=== PATIENT | male | born 1975 | race Caucasian/White ===

== ENCOUNTER 2016-11-16 16:46 | Emergency (ER) | payer BC, OTHER ==
[~2016-11-16] VITALS: Ht 170.2 cm; Wt 80.0 kg
[2016-11-16 16:48] VITALS: BP 141/87; PULSE 73; RESP 16; TEMP 98.1; O2SAT 98
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
[2016-11-16] MEDS ORDERED: IBUPROFEN 600 MG TAB PO ONE (19:30)
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
[2016-11-16] MEDS ORDERED: CYCL5TAB PO (21:24)
== END 2016-11-16 21:48 | disposition home or self-care (01) ==
LOC: NEPD 16:46
DX: S13.4XXA Sprain of ligaments of cervical spine, initial encounter (principal); D17.9 Benign lipomatous neoplasm, unspecified; M54.6 Pain in thoracic spine; M54.5 Low back pain; F17.200 Nicotine dependence, unspecified, uncomplicated; V89.2XXA Person injured in unspecified motor-vehicle accident, traffic, initial encounter
CPT/HCPCS: 71250; 72125; 74176; 99285; L0150